=== PATIENT | male | born 2005 | race Caucasian/White ===

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

== ENCOUNTER 2025-05-02 13:00 | Emergency (ER) | payer SELFPAY | END 2025-05-02 14:48 | disposition home or self-care (01) | LOC: MW.ED 13:00 | DX: L60.0 Ingrowing nail (principal); Z75.3 Unavailability and inaccessibility of health-care facilities | CPT/HCPCS: 11730; 99283; J2003 ==